=== PATIENT | female | born 1980 | race Caucasian/White ===

== ENCOUNTER 2023-03-16 19:44 | Outpatient (REF) | payer BC, SELFPAY ==
[2023-03-22 08:11] LABS: Age Gdln ACOG Testing Note (.); HPV Aptima Negative (Negative); IGP, Aptima HPV, rfx 16/18,45 Note (.)
== END 2023-03-16 19:45 | disposition home or self-care (01) ==
LOC: LAB 19:44
PROVIDERS: PCP Internal Medicine; Visit Provider Physician Assistant
DX: Z12.4 Encounter for screening for malignant neoplasm of cervix (principal)
CPT/HCPCS: 87624; G0145

== ENCOUNTER 2023-03-17 06:54 | Outpatient (OUT) | payer BC, SELFPAY ==
[2023-03-17 07:11] LABS: Basophils Absolute Auto 0.1 10^3/uL (0.0-0.1); Basophils Percent Auto 0.6 % (0.2-2.0); Eosinophils Absolute Auto 0.4 10^3/uL (0.0-0.7); Eosinophils Percent Auto 3.9 % (0.9-7.0); Hematocrit 41.8 % (36.0-48.0); Hemoglobin 14.3 g/dL (12.0-16.0); Immature Granulocytes Abs Auto 0.05 10^3/uL (0.00-0.03); Immature Granulocytes Pct Auto 0.6 % (0.0-0.5); Lymphocytes Absolute Auto 2.3 10^3/uL (1.2-3.8); Lymphocytes Percent Auto 25.7 % (20.5-60.0); Mean Corpuscular HGB Conc 34.2 g/dL (29.9-35.2); Mean Corpuscular Hemoglobin 31.8 pg (26.7-34.0); Mean Corpuscular Volume 93.1 fL (81.0-99.0); Mean Platelet Volume 10.3 fL (9.5-13.5); Monocytes Absolute Auto 0.5 10^3/uL (0.3-0.8); Monocytes Percent Auto 5.9 % (1.7-12.0); Neutrophils Absolute Auto 5.6 10^3/uL (1.4-6.5); Neutrophils Percent Auto 63.3 % (43.0-75.0); Platelet Count 244 10^3/uL (150-450); Red Blood Count 4.49 10^6/uL (4.20-5.40); Red Cell Distribution Width 12.3 % (11.0-15.0); White Blood Count 8.9 10^3/uL (4.0-11.0)
[2023-03-17 07:46] LABS: Estimated Average Glucose 97 mg/dL
[2023-03-17 08:26] LABS: Alanine Aminotransferase 46 U/L (14-59); Albumin Globulin Ratio 1.1; Alkaline Phosphatase 55 U/L (46-116); Anion Gap 14.5; Aspartate Amino Transferase 18 U/L (15-37); BUN Creatinine Ratio 23.5; Bilirubin Total 0.9 mg/dL (0.2-1.0); Calcium 8.7 mg/dL (8.5-10.1); Carbon Dioxide 25.5 mmol/L (21.0-32.0); Chloride 104 mmol/L (98-107); Chol HDL Ratio 7.6; Cholesterol 265 mg/dL (<=200); Estimated GFR (African America >60 (>=60); Estimated GFR (Non-African Ame >60 (>=60); Globulin 3.5 g/dL; Glucose 109 mg/dL (74-106); HDL Cholesterol 35 mg/dL (40-60); Sodium 140 mmol/L (136-145); Total Protein 7.5 g/dL (6.4-8.2); Triglycerides 163 mg/dL (<=150); VLDL CHOLESTEROL 32.6 mg/dL
--- NOTE | 2023-03-17 11:43 | MM_ITS ---
Patient: RAJAN TOLENTINO Exam Date: 03/17/2023 : 1980 Gender:F Ordering : DR Gutierrez Mcintosh . Admission #: [id number] Family : DR Jony Lundberg D.O. Order #: [id number] CLICK HERE TO VIEW EXAM RADIOLOGY REPORT PROCEDURE: MM TOMOSYNTHESIS SCREENING BI COMPARISON: MG MAMM SCREEN 3D AGUSTIN CAD, 03/05/2022. MG MAMM SCREEN AGUSTIN W CAD, 02/06/2020. MG MAMM AGUSTIN DIAG FU, 04/11/2019. MG MAMM AGUSTIN DIAG W CAD DIG, 05/23/2014. INDICATIONS: Screening Calculator Name NCI Breast Cancer Risk Assessment Tool 5 Year Breast Cancer Risk 2.00% Lifetime Breast Cancer Risk 14.90% Personal Breast Cancer No Personal Ovarian Cancer No Treatments None Family Cancers Grandmother-paternal with renal cell cancer at age ~73; Aunt-paternal with renal cell cancer at age ~55. LOCATION: [facility] BREAST COMPOSITION: Heterogeneously dense,which may obscure small masses. FINDINGS: DIAGNOSTIC CATEGORY 2--BENIGN FINDING: RIGHT BREAST: No significant suspicious finding. Scattered benign-appearing calcifications are present. No significant change has occurred. LEFT BREAST: No significant suspicious finding. Scattered benign-appearing calcifications are present. No significant change has occurred. RECOMMENDATIONS: ROUTINE MAMMOGRAM AND CLINICAL EVALUATION IN 12 MONTHS. PLEASE NOTE: A NORMAL MAMMOGRAM DOES NOT EXCLUDE THE POSSIBILITY OF BREAST CANCER. A CLINICALLY SUSPICIOUS PALPABLE LUMP SHOULD BE BIOPSIED. Dictated by: Edson Guidry M.D. on 03/18/2023 at 10:21 Approved by: Edson Guidry M.D. on 03/18/2023 at 10:25
== END 2023-03-17 06:55 | disposition home or self-care (01) ==
LOC: LAB 06:54
PROVIDERS: PCP Internal Medicine; Visit Provider Obstetrics & Gynecology
DX: Z00.00 Encounter for general adult medical examination without abnormal findings (principal); Z12.31 Encounter for screening mammogram for malignant neoplasm of breast; Z80.51 Family history of malignant neoplasm of kidney
CPT/HCPCS: 36415; 77063; 77067; 80053; 80061; 83036; 84443; 85025

== ENCOUNTER 2024-03-01 14:43 | Outpatient (OUT) | payer BC, SELFPAY ==
--- NOTE | 2024-03-01 | XR_ITS ---
The [address] [address] Patient Name: RAJAN TOLENTINO MRN: [id number] date: 1980 Sex: F Assigned Patient Location: Current Patient Location: Accession/Order Number: [id number] Exam Date: 03/01/2024 14:45 Report Date: 03/03/2024 08:53 At the request of: MARY SANDS Procedure: XR foot LT min 3V PROCEDURE: XR foot LT min 3V HISTORY: LEFT FOOT PAIN ; chronic lump anterior midfoot COMPARISON: None. FINDINGS: BONES:Mild narrowing of the first metatarsophalangeal joint along with tiny periarticular osteophytes. No fracture, dislocation, bone lesion. Prominent degenerative enthesophyte at the Achilles tendon insertion into the calcaneus. SOFT TISSUES:No visible soft tissue swelling. EFFUSION:None visible. OTHER: Negative. XR/XR foot LT min 3V IMPRESSION: 1. No acute bone abnormality or appreciable findings to account for patient's symptoms. 2. Mild degenerative changes. Electronically authenticated by: MIGUE ARORA Date: 03/03/2024 08:53
== END 2024-03-01 14:44 | disposition home or self-care (01) ==
LOC: EC 14:43
PROVIDERS: PCP Internal Medicine; Visit Provider Physician Assistant
DX: M67.472 Ganglion, left ankle and foot (principal)
CPT/HCPCS: 73630

== ENCOUNTER 2024-03-12 07:16 | Outpatient (OUT) | payer BC, SELFPAY ==
[2024-03-12 07:33] LABS: Basophils Absolute Auto 0.1 10^3/uL (0.0-0.1); Basophils Percent Auto 0.7 % (0.2-2.0); Eosinophils Absolute Auto 0.3 10^3/uL (0.0-0.7); Eosinophils Percent Auto 4.4 % (0.9-7.0); Hematocrit 36.9 % (36.0-48.0); Hemoglobin 12.9 g/dL (12.0-16.0); Immature Granulocytes Abs Auto 0.02 10^3/uL (0.00-0.03); Immature Granulocytes Pct Auto 0.3 % (0.0-0.5); Lymphocytes Absolute Auto 2.5 10^3/uL (1.2-3.8); Lymphocytes Percent Auto 35.9 % (20.5-60.0); Mean Corpuscular Hemoglobin 32.2 pg (26.7-34.0); Mean Platelet Volume 9.9 fL (9.5-13.5); Monocytes Absolute Auto 0.4 10^3/uL (0.3-0.8); Monocytes Percent Auto 5.2 % (1.7-12.0); Neutrophils Absolute Auto 3.7 10^3/uL (1.4-6.5); Neutrophils Percent Auto 53.5 % (43.0-75.0); Platelet Count 238 10^3/uL (150-450); Red Blood Count 4.01 10^6/uL (4.20-5.40); Red Cell Distribution Width 12.2 % (11.0-15.0)
[2024-03-12 08:32] LABS: Alanine Aminotransferase 26 U/L (14-59); Albumin Globulin Ratio 1.1; Albumin Level 3.7 g/dL (3.4-5.0); Alkaline Phosphatase 65 U/L (46-116); Anion Gap 11.1; Aspartate Amino Transferase <5 U/L (15-37); BUN Creatinine Ratio 12.5; Bilirubin Total 0.5 mg/dL (0.2-1.0); Calcium 8.4 mg/dL (8.5-10.1); Carbon Dioxide 26.8 mmol/L (21.0-32.0); Chloride 104 mmol/L (98-107); Chol HDL Ratio 7.1; Cholesterol 191 mg/dL (<=200); Estimated GFR (African America >60 (>=60); Estimated GFR (Non-African Ame >60 (>=60); Globulin 3.4 g/dL; Glucose 103 mg/dL (74-106); HDL Cholesterol 27 mg/dL (40-60); Potassium 3.9 mmol/L (3.5-5.1); Sodium 138 mmol/L (136-145); Thyroid Stimulating Hormone 1.269 uIU/mL (0.358-3.740); Total Protein 7.1 g/dL (6.4-8.2); Triglycerides 390 mg/dL (<=150)
[2024-03-12 08:44] LABS: Estimated Average Glucose 97 mg/dL
== END 2024-03-12 07:17 | disposition home or self-care (01) ==
LOC: LAB 07:18
PROVIDERS: PCP Internal Medicine; Visit Provider Obstetrics & Gynecology
DX: Z00.00 Encounter for general adult medical examination without abnormal findings (principal)
CPT/HCPCS: 36415; 80053; 80061; 83036; 84443; 85025

== ENCOUNTER 2024-03-21 12:51 | Outpatient (OUT) | payer BC, SELFPAY | END 2024-03-21 12:52 | disposition home or self-care (01) | LOC: PST 12:51 | PROVIDERS: PCP Internal Medicine; Visit Provider Podiatrist Foot & Ankle Surgery | DX: Z01.818 Encounter for other preprocedural examination (principal); M67.472 Ganglion, left ankle and foot ==

== ENCOUNTER 2024-03-21 12:51 | Outpatient (OUT) | payer BC, SELFPAY | END 2024-03-21 12:52 | disposition home or self-care (01) | LOC: PST 12:51 | PROVIDERS: PCP Internal Medicine; Visit Provider Surgery | DX: Z01.818 Encounter for other preprocedural examination (principal); Z12.11 Encounter for screening for malignant neoplasm of colon ==

== ENCOUNTER 2024-03-22 12:18 | Day surgery (SDC) | payer BC, SELFPAY ==
[2024-03-22] MEDS: CEFAZOLIN SODIUM 2 GM/50 ML D5W PREMIX IV (12:27)
--- NOTE | 2024-03-22 12:35 | P.ORON_ITS ---
Brief Operative Note Date of procedure: 03/22/24 Pre-op diagnosis general: Soft tissue mass left foot Post-op diagnosis: same as pre-op Procedure: Procedure performed: Excision subcutaneous soft tissue mass left foot Indications for procedure: Patient is a 43-year-old female who has had a lump on the top of her left foot for 5 years. She has had persistent periodic pain which is worse with shoes for some time and is only gotten worse in the last year. He presented to my office and was evaluated by Mercedes Hunter PA-c. Her findings at that appointment as well as in preoperative holding were consistent with a benign skin lesion (lipoma vs ganglion) on the dorsal central left foot. I discussed potential risks and benefits of surgical intervention specifically including infection, wound healing problems and recurrence as well as numbness, tingling, bleeding and pain. Patient provided consent to undergo the above procedure Intraoperative findings: Freely movable subcutaneous mass which measured 0.4 x 0.4 cm which was firm and raised 0.2 cm from the adjacent skin Procedure in detail: Patient was identified in preoperative holding by myself which time correct side and site were marked and consent was obtained. Preoperative antibiotics were started and patient is brought back in the operating theater placed on table in supine position. The operative extremity was prepped and draped in usual sterile fashion. Local anesthesia consisting of 5 cc of 1% lidocaine plain and 5 cc of 1% lidocaine with epi were used to anesthetize the surgical site. Formal timeout was performed. The skin overlying the mass was incised longitudinally and a combination of sharp and blunt dissection gained access to the a firm soft tissue mass which appeared to extend into the dermal structures and subcutaneous tissue. Due to apparent involvement of the deep dermal structures decision was made to excise the lesion and a 3-1 ellipse. The adjacent skin was slightly raised medially and laterally to allow for closure without tension. The surgical site was irr igated with copious saline and skin was then closed in layers. 10 cc of 0.5% Marcaine plain were used for postoperative analgesia. A dry sterile dressing and surgical shoe were then applied. Postoperative plan: Discharge home under family's care Weightbearing as tolerated in surgical shoe Patient should remain off work for at least 10 days Prescriptions were sent to her pharmacy through my office EMR Patient may remove the surgical dressing in 2 to 3 days wash area with soap and water and pat dry then replace with a gauze dressing. No soaking or submerging and no ointments or solutions are to be applied. Patient should follow-up in approximately 3 weeks for suture removal but may call sooner if needed Anesthesia: local Surgeon: Musa Shabazz Estimated blood loss (mL): 10 Tourniquet time (min): 0 Pathology: other (ganglion cyst) Condition: stable Disposition: PACU
[2024-03-22] MEDS: LIDOCAINE HCL 1%-EPINEPHRINE 1:100,000 20 ML MDV INJ (13:16)
[2024-03-22] MEDS: LIDOCAINE HCL 1% 100 MG/10 ML MDV INJ (13:16)
[2024-03-22] MEDS: BUPIVACAINE HCL 0.5% PF 50 MG/10 ML VIAL INJ (13:24)
== END 2024-03-22 13:50 | disposition home or self-care (01) ==
PROVIDERS: PCP Internal Medicine; Visit Provider Podiatrist Foot & Ankle Surgery
PROC: (CPT 28043; principal; 2024-03-22 13:00)
DX: D23.72 Other benign neoplasm of skin of left lower limb, including hip (principal)
CPT/HCPCS: 28043; 88305; J0665; J0690

== ENCOUNTER 2024-03-28 06:53 | Day surgery (SDC) | payer BC, SELFPAY ==
--- NOTE | 2024-03-28 | OP_ITS ---
OPERATION DATE: 03/28/2024 PREOPERATIVE DIAGNOSIS: Colorectal screening. POSTOPERATIVE DIAGNOSIS: Normal colonoscopy to cecum. PROCEDURE: Colonoscopy to cecum. SURGEON: Jatinder Gonzalez M.D. ANESTHESIA: Monitored anesthesia care. ESTIMATED BLOOD LOSS: Zero. INDICATIONS AND CONSENT: Patient is a 43-year-old female presents for colorectal screening. Indications, risks, benefits, alternatives of proceeding with colonoscopy were explained extensively to the patient, including the risks of bleeding, colon perforation or anesthetic complications. All of her questions were answered. Informed consent was obtained. PROCEDURE: Patient brought to the operating room, placed in the left lateral decubitus position. Monitored anesthesia care was provided. Rectal exam was performed which revealed no masses or blood. The scope was inserted into the anal canal. Under direct visualization was advanced. It was advanced to the cecum where cecal markings were clearly identified. There was noted to be a good prep. Upon withdrawal of the scope, mucosal surfaces were carefully examined. There were no mass lesions or polyps. No inflammatory changes or ulcerations. No significant diverticulosis. The scope was retroflexed in the anal canal. There was no significant hemorrhoidal disease. Scope was then withdrawn. Patient tolerated procedure well, was sent to recovery room in good condition. f/u screening colonoscopy should be in 10 years. CC: Dr. Stefano TONY
[2024-03-28 07:05] VITALS: BP 132/80; PULSE 96; TEMP 36.4; O2SAT 99; BMI 10.8; BMI 33.8
[2024-03-28] MEDS: 0.9 % SODIUM CHLORIDE 500 ML 50 ML IV (07:22)
[2024-03-28 07:29] LABS: HCG Qualitative NEGATIVE (NEGATIVE); Internal Control Within Normal Limits
[2024-03-28 08:17] VITALS: BP 94/56; PULSE 84; TEMP 36.4; O2SAT 95
[2024-03-28 08:32] VITALS: BP 113/73; PULSE 86; O2SAT 97
[2024-03-28 08:47] VITALS: BP 107/70; PULSE 70; O2SAT 98
== END 2024-03-28 09:00 | disposition home or self-care (01) ==
PROVIDERS: Anesthesiology; PCP Internal Medicine; Visit Provider Surgery
PROC: (CPT 812; principal; 2024-03-28 08:05)
DX: Z12.11 Encounter for screening for malignant neoplasm of colon (principal); Z90.49 Acquired absence of other specified parts of digestive tract; M54.16 Radiculopathy, lumbar region
CPT/HCPCS: 00812; 45378; 36415; 84703; J2704

== ENCOUNTER 2024-04-04 19:01 | Outpatient (REF) | payer BC, SELFPAY ==
[2024-04-11 12:09] LABS: Age Gdln ACOG Testing Note (.); HPV Aptima Negative (Negative); IGP, Aptima HPV, rfx 16/18,45 Note (.)
== END 2024-04-04 19:02 | disposition home or self-care (01) ==
LOC: LAB 19:01
PROVIDERS: PCP Internal Medicine; Visit Provider Obstetrics & Gynecology
DX: Z01.419 Encounter for gynecological examination (general) (routine) without abnormal findings (principal)
CPT/HCPCS: 87624; 88175

== ENCOUNTER 2024-04-17 13:47 | Outpatient (OUT) | payer BC, SELFPAY ==
--- NOTE | 2024-04-17 13:53 | MM_ITS ---
Patient Name: RAJAN TOLENTINO MR#: [id number] : 1980 Exam Date: 04/17/2024 Ordering Doctor: DR Gutierrez Mcintosh . RADIOLOGY REPORT PROCEDURE: MM TOMOSYNTHESIS SCREENING BI COMPARISON: MM TOMOSYNTHESIS SCREENING BI, 03/17/2023. MG MAMM SCREEN 3D AGUSTIN CAD, 03/05/2022. MG MAMM SCREEN AGUSTIN W CAD, 02/06/2020. MG MAMM AGUSTIN DIAG W CAD DIG, 05/23/2014. INDICATIONS: Screening for malignant neoplasm of breast Calculator Name [facility] Breast Cancer Risk Assessment Tool 5 Year Breast Cancer Risk 2.10% Lifetime Breast Cancer Risk 14.60% Personal Breast Cancer No Personal Ovarian Cancer No Treatments None Family Cancers Grandmother-paternal with renal cell cancer at age ~73; Aunt-paternal with renal cell cancer at age ~55. LOCATION: [facility] BREAST COMPOSITION: The breasts are extremely dense, which lowers the sensitivity of mammography. FINDINGS: DIAGNOSTIC CATEGORY 1--NEGATIVE. RIGHT BREAST: No significant suspicious finding. No significant change has occurred. LEFT BREAST: No significant suspicious finding. No significant change has occurred. RECOMMENDATIONS: ROUTINE MAMMOGRAM AND CLINICAL EVALUATION IN 12 MONTHS. PLEASE NOTE: A NORMAL MAMMOGRAM DOES NOT EXCLUDE THE POSSIBILITY OF BREAST CANCER. A CLINICALLY SUSPICIOUS PALPABLE LUMP SHOULD BE BIOPSIED. Dictated by: Edson Guidry M.D. on 04/17/2024 at 15:52 Approved by: Edson Guidry M.D. on 04/17/2024 at 15:55
== END 2024-04-17 13:48 | disposition home or self-care (01) ==
LOC: RAD 13:50
PROVIDERS: PCP Internal Medicine; Visit Provider Obstetrics & Gynecology
DX: Z12.31 Encounter for screening mammogram for malignant neoplasm of breast (principal); Z80.51 Family history of malignant neoplasm of kidney
CPT/HCPCS: 77063; 77067

== ENCOUNTER 2024-08-17 00:35 | Emergency (ER) | payer BC, SELFPAY ==
[2024-08-17] VITALS (19 sets, daily range): BP systolic 98–131; BP diastolic 50–81; PULSE 79–102; TEMP 36.7–37; O2SAT 92–100; BMI 32.1
[2024-08-17] MEDS: ONDANSETRON PF 4 MG/2 ML VIAL IV ×2 (01:10→03:16)
[2024-08-17] MEDS: FAMOTIDINE/PF 20 MG/2 ML VIAL IV (01:10)
[2024-08-17] MEDS: 0.9 % SODIUM CHLORIDE 1,000 ML 1000 ML IV ×2 (01:10→02:21)
[2024-08-17] MEDS: KETOROLAC TROMETHAMINE 30 MG/ML VIAL IVP (01:10)
[2024-08-17 01:13] LABS: Hematocrit 40.6 % (36.0-48.0); Hemoglobin 14.3 g/dL (12.0-16.0); Mean Corpuscular HGB Conc 35.2 g/dL (29.9-35.2); Mean Corpuscular Hemoglobin 32.4 pg (26.7-34.0); Mean Corpuscular Volume 91.9 fL (81.0-99.0); Platelet Count 237 10^3/uL (150-450); Red Blood Count 4.42 10^6/uL (4.20-5.40); Red Cell Distribution Width 13.2 % (11.0-15.0); White Blood Count 12.4 10^3/uL (4.0-11.0)
[2024-08-17 01:26] LABS: Alanine Aminotransferase 32 U/L (14-59); Albumin Globulin Ratio 1.2; Albumin Level 4.1 g/dL (3.4-5.0); Alkaline Phosphatase 62 U/L (46-116); Anion Gap 13.2; Aspartate Amino Transferase 18 U/L (15-37); BUN Creatinine Ratio 14.8; Bilirubin Total 1.8 mg/dL (0.2-1.0); Calcium 8.8 mg/dL (8.5-10.1); Carbon Dioxide 26.6 mmol/L (21.0-32.0); Chloride 101 mmol/L (98-107); Estimated GFR (African America >60 (>=60 mL/min/1.73m^2); Estimated GFR (Non-African Ame >60 (>=60 mL/min/1.73m^2); Globulin 3.5 g/dL; Glucose 153 mg/dL (74-106); Potassium 3.8 mmol/L (3.5-5.1); Sodium 137 mmol/L (136-145); Total Protein 7.6 g/dL (6.4-8.2)
--- NOTE | 2024-08-17 01:30 | ED_ITS ---
HPI HPI - General Adult General Chief complaint: Abdominal Pain Stated complaint: ABDOMINAL PAIN N/V/D Time Seen by Provider: 08/17/24 00:45 Source: patient Mode of arrival: walk-in Limitations: no limitations History of Present Illness HPI narrative: This 44-year-old female presents for evaluation of nausea vomiting and diarrhea that started earlier today. She has had multiple episodes of vomiting and diarrhea since getting home from work earlier today. She has abdominal cramps. She has not eaten since lunch. Related Data Home Medications ?Medication ?Instructions ?Recorded ?Confirmed citalopram 20 mg tablet 20 mg PO QPM 03/21/24 03/28/24 Allergies Allergy/AdvReac Type Severity Reaction Status Date / Time No Known Drug Allergies Allergy Verified 08/17/24 00:45 Opioid HPI Opioid Management Most Recent Opioid Data: Last Pain Scale 5 08/17/24 02:06 08/17/24 Last MAR Pain Assessment 08/17/24 02:06 Review of Systems ROS Status of ROS 10 or more systems reviewed and unremark able except as noted in history and below PFSH [facility] Medical History (Updated 08/17/24 @ 03:26 by Lara Jaimes MD) Hypertriglyceridemia ?E78.1 - Pure hyperglyceridemia (ICD-10) Ganglion cyst ?M67.40 - Ganglion, unspecified site (ICD-10) Back pain ?M54.9 - Dorsalgia, unspecified (ICD-10) Anxiety ?F41.9 - Anxiety disorder, unspecified (ICD-10) Peptic ulcer ?K27.9 - Peptic ulcer, site unspecified, unspecified as acute or chronic, without hemorrhage or perforation (ICD-10) Surgical History (Updated 03/21/24 @ 13:08 by Mary Ruano NP) History of cholecystectomy ?Z90.49 - Acquired absence of other specified parts of digestive tract (ICD- 10) H/O lumbar discectomy ?Z98.890 - Other specified postprocedural states (ICD-10) H/O lumbar discectomy ?Z98.890 - Other specified postprocedural states (ICD-10) H/O lumbar discectomy ?Z98.890 - Other specified postprocedural states (ICD-10) S/P lumbar fusion ?Z98.1 - Arthrodesis status (ICD-10) H/O section ?Z98.891 - History of uterine scar from previous surgery (ICD-10) H/O section ?Z98.891 - History of uterine scar from previous surgery (ICD-10) H/O section ?Z98.891 - History of uterine scar from previous surgery (ICD-10) History of esophagogastroduodenoscopy (EGD) ?Z98.890 - Other specified postprocedural states (ICD-10) Family History (Updated 03/21/24 @ 13:08 by Mary Ruano NP) Other Cancer Family history of diabetes mellitus Family history of hypertension Glaucoma Social History (Updated 03/21/24 @ 12:52 by Mary Ruano NP) Within the past year, how often did you have a drink containing alcohol: m onthly or less Smoking status: Never smoker Non-prescribed substance use: denies use 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 Highest level of school completed/degree received: Master's degree Little interest or pleasure in doing things: not at all Feeling down, depressed, or hopeless: not at all Exam Narrative Exam Narrative: Vital signs and Nursing Notes reviewed: Patient is afebrile, tachycardic with a pulse of 102, blood pressure is normal, she is mildly hypoxic with pulse ox of 92% on room air General: Awake, alert, oriented, pale, uncomfortable appearing adult female, no respiratory distress HEENT: Normocephalic atraumatic, mucous membranes are pink and dry Chest: Lungs are clear to auscultation with good air entry, there is no wheezing rhonchi or rales appreciated no accessory muscle use, patient is speaking in complete sentences-no chest wall tenderness to palpation CVS: Regular rate and rhythm S1-S2, no murmurs rubs or gallops, pulses are brisk and equal bilaterally ABD: Soft, nondistended, epigastric abdominal tenderness Extremities: Moving all extremities, no lower extremity tenderness or swelling noted Skin: Pale, dry Neuro: No focal deficits Constitutional Vital Signs, click to edit/add: Last Vital Signs Temp 98.0 F 08/17/24 00:45 Pulse 102 H 08/17/24 00:45 Resp 18 08/17/24 00:45 BP 110/73 08/17/24 03:00 Pulse Ox 96 08/17/24 03:00 O2 Del Method Room Air 08/17/24 00:45 Course Vital Signs Vital signs: Vital Signs Pulse Oximetry 100 08/17/24 00:42 Temperature 98.0 F 08/17/24 00:45 Pulse Rate 102 H 08/17/24 00:45 Respiratory Rate 18 08/17/24 00:45 Blood Pressure 110/73 08/17/24 03:00 Pulse Oximetry 96 08/17/24 03:00 Oxygen Delivery Method Room Air 08/17/24 00:45 Medical Decision Making [facility] Narrative Medical decision making narrative: This 44-year-old female presents for evaluation of acute onset of nausea vomiting and diarrhea after work today. She had multiple episodes of nausea vomiting and diarrhea. She presents with epigastric abdominal pain associated with the above complaints. She is mildly tachycardic upon arrival and pulse ox was 92. I think she was probably not taking deep breaths at that time because her pulse ox on reevaluation is in the high 90s. She has epigastric abdominal tenderness. An IV was placed and she was treated with IV fluids, Zofran, Pepcid and Toradol. On reevaluation her nausea is somewhat improved but she is still having epigastric abdominal pain and cramping. She will be given Bentyl and a dose of IV morphine. She has a normal white count and hemoglobin. Electrolytes are normal with an elevated total bilirubin likely related to her forceful vomiting. On reevaluation she is feeling better but feels that she cannot lie on her side because she may still vomit. She was given an additional liter of normal saline for a total of 2 and repeat dose of Zofran. She was tolerating ice chips afterwards and feeling somewhat better. She will be given a home dose of Zofran and prescription for Zofran, Pepcid and Bentyl to use as needed Lab Data Lab results reviewed: Yes I reviewed the patient's lab results Labs: Lab Results 08/17/24 Range/Units 01:00 WBC 12.4 H (4.0-11.0) 10^3/uL RBC 4.42 (4.20-5.40) 10^6/uL Hgb 14.3 (12.0-16.0) g/dL Hct 40.6 (36.0-48.0) % MCV 91.9 (81.0-99.0) fL MCH 32.4 (26.7-34.0) pg MCHC 35.2 (29.9-35.2) g/dL RDW 13.2 (11.0-15.0) % Plt Count 237 (150-450) 10^3/uL MPV 10.0 (9.5-13.5) fL Seg Neuts % (Manual) 91.0 H (43.0-75.0) Band Neutrophils % 2.0 (0-5) % Lymphocytes % (Manual) 1.0 L (20.5-60.0) % Monocytes % (Manual) 5.0 (1.7-12.0) % Eosinophils % (Manual) 1.0 (0.9-7.0) % Basophils % (Manual) 0.0 L (0.2-2.0) % Neutrophils # (Manual) 11.28 H (1.4-6.5) 10^3/uL Band Neutrophils # 0.2 (0.0-0.3) 10^3/uL Lymphocytes # (Manual) 0.12 L (1.20-3.80) 10^3/uL Monocytes # (Manual) 0.62 (0.30-0.80) 10^3/uL Eosinophils # (Manual) 0.12 (0.00-0.70) 10^3/uL Basophils # (Manual) 0.00 (0.00-0.10) 10^3/uL Sodium 137 (136-145) mmol/L Potassium 3.8 (3.5-5.1) mmol/L Chloride 101 (98-107) mmol/L Carbon Dioxide 26.6 (21.0-32.0) mmol/L Anion Gap 13.2 BUN 13.0 (7.0-18.0) mg/dL Creatinine 0.88 (0.55-1.02) mg/dL Est GFR ( Amer) >60 (>=60 mL/min/1.73m^2) Est GFR (Non-Af Amer) >60 (>=60 mL/min/1.73m^2) BUN/Creatinine Ratio 14.8 Glucose 153 H (74-106) mg/dL Calcium 8.8 (8.5-10.1) mg/dL Total Bilirubin 1.8 H (0.2-1.0) mg/dL AST 18 (15-37) U/L ALT 32 (14-59) U/L Alkaline Phosphatase 62 (46-116) U/L Total Protein 7.6 (6.4-8.2) g/dL Albumin 4.1 (3.4-5.0) g/dL Globulin 3.5 g/dL Albumin/Globulin Ratio 1.2 Discharge Plan Discharge Chief Complaint: Abdominal Pain Clinical Impression: Gastroenteritis Patient Disposition: Home, Self-Care Time of Disposition Decision: 03:26 Condition: Good Prescriptions / Home Meds: No Action citalopram 20 mg tablet 20 mg PO QPM Print Language: Swedish Instructions: Gastroenteritis (ED) Referrals: Jony Lundberg DO [Primary Care Provider] - 1 week
[2024-08-17 01:55] LABS: Band Neutrophils Absolute 0.2 10^3/uL (0.0-0.3); Eosinophils Absolute Manual 0.12 10^3/uL (0.00-0.70); Lymphocytes Absolute Manual 0.12 10^3/uL (1.20-3.80); Monocytes Absolute Manual 0.62 10^3/uL (0.30-0.80); Segmented Neut Absolute Manual 11.28 10^3/uL (1.4-6.5)
[2024-08-17] MEDS: DICYCLOMINE HCL 20 MG/2 ML VIAL IM (02:06)
[2024-08-17] MEDS: MORPHINE SULFATE 4 MG/ML VIAL IV (02:06)
[2024-08-17] MEDS: ONDANSETRON 4 MG RAPDIS TABLET SL ×2 (03:53)
--- NOTE | 2024-08-17 03:56 | PC.NURSE ---
i gave this patient verbal and written discharge orders along with 3 Rx and medication to go home with. at time of discharge this patient voices no concerns and shows no signs of distress
== END 2024-08-17 03:57 | disposition home or self-care (01) ==
PROVIDERS: Emergency Provider Emergency Medicine; PCP Internal Medicine
DX: K52.9 Noninfective gastroenteritis and colitis, unspecified (principal); Z90.49 Acquired absence of other specified parts of digestive tract; Z98.1 Arthrodesis status
CPT/HCPCS: 36415; 80053; 85007; 85027; 96361; 96372; 96374; 96375; 96376; 99284; J0500; J1885; J2270; J2405; J3490; Q0162

== ENCOUNTER 2025-04-10 20:12 | Outpatient (REF) | payer BC, SELFPAY ==
--- OUTSIDE RECORDS SUMMARY | 2024-03-22 04:30 | XMS_ITS ---
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 [address] [place] [address] 03/22/2024 Musa Shabazz Plan Of Treatment No Information Progress Notes * Natacha STANFORDDOB: [birth year] (44 yo F)Acc No.[id number]:03/22/2024 UNLOCKED PROGRESS NOTE Patient:?Natacha STANFORD :?Musa Shabazz DPM, MSDOB:1980???Age: 43 Y???Sex:FemaleDate:4Phone:[phone]:[address] [place], [id number]:Marcial Nino Out:08:45 AM EST * * Electronic signature of Musa Shabazz DPM on 04/10/2025 at 12:51 PM EDTSign off status: PendingVisit Status:?CHK (Check Out) * Provider: Jose Shabazz DPM, MS Date: 1 Generated for Printing/Faxing/eTransmitting on:?04/10/2025 12:51 PM EDT
--- OUTSIDE RECORDS SUMMARY | 2025-04-10 15:20 | XMS_ITS | Encounter Summary ---
Author Organization [facility] Address [address] [place] [address] Care Team Providers Care Client Solutions Manager Name Role Phone Jony Lundberg DO Primary Care Provider [phone] Reason for Visit * ReasonCommentsGynecologic Exam Encounter Details DateTypeDepartmentCare Team (Latest Contact Info)Gprtjpofpne42/22/2025 3:20 PM EDTProcedure Visit [facility] [place] [facility] [address] [place] [address] Gutierrez Mcintosh DO [address] [place], [place] [id number] Well woman exam with routine gynecological exam; Encounter for screening mammogram for malignant neoplasm of breast; Insulin resistance Social History Tobacco UseTypesPacks/DayYears UsedDateSmoking Tobacco: Never Assessed CommentsNoSex and Gender InformationValueDate RecordedSex Assigned at BirthNot on fileLegal CpnUqbrum30/15/2023 6:53 PM EDTGender IdentityNot on fileSexual OrientationNot on filedocumented as of this encounter Last Filed Vital Signs Vital SignReadingTime TakenCommentsBlood Sysslriu223/7404/10/2025 12:59 PM EDT Pulse--Temperature--Respiratory Rate--Oxygen Saturation--Inhaled Oxygen Concentration--Kxukgo10.5 kg (204 lb)04/10/2025 12:59 PM EDTHeight--Body Mass Index--documented in this encounter Progress Notes * Maria Isabel Marcus LPN - 04/10/2025 3:20 PM EDT Reason for Appointment: Patient ID: Natacha Stanford is a 44 y.o. female who presents for Gynecologic Exam Patient presents today for Annual Exam. MEDICATIONS Current Outpatient Medications Medication Instructions azithromycin (Zithromax Z-Humberto) 250 MG tablet As directed citalopram (CELEXA) 20 mg, Oral, Daily citalopram (CELEXA) 20 mg, Oral, Every morning fluticasone (Flonase Allergy Relief) 50 MCG/ACT nasal spray 1 spray, Each Nostril, Daily, Shake gently. Before first use, prime pump. After use, clean tip and replace cap. ibuprofen 800 mg, Oral, Every 8 hours PRN niacin (antihyperlipidemic) (NIACOR) 500 mg, Oral, Nightly phentermine (ADIPEX-P) 37.5 mg, Oral, Daily before breakfast phentermine (ADIPEX-P) 37.5 mg, Oral, Daily before breakfast rosuvastatin (CRESTOR) 5 mg, Oral, Daily ALLERGIES Allergies Allergen Reactions Niacin Hives PROBLEMS Active Ambulatory Problems Diagnosis Date Noted Mood change 09/06/2024 Resolved Ambulatory Problems Diagnosis Date Noted No Resolved Ambulatory Problems No Additional Past Medical History HISTORY PAST MEDICAL HISTORY SOCIAL HISTORY No past medical history on file. Social History Tobacco Use Smoking status: Not on file Smokeless tobacco: Not on file Substance Use Topics Alcohol use: Not on file Drug use: Not on file FAMILY HISTORY Family History Problem Relation Name Age of Onset Hypertension Mother Glaucoma Mother Tuberculosis Mother Hyperlipidemia Father Depression Father SURGICAL HISTORY Past Surgical History: Procedure Laterality Date SECTION, LOW TRANSVERSE x3 CHOLECYSTECTOMY 2010 SPINE SURGERY 2005 Discectomy REVIEW OF SYSTEMS Review of Systems: Review of Systems Constitutional: Negative. HENT: Negative. Eyes: Negative. Respiratory: Negative. Cardiovascular: Negative. Gastrointestinal: Negative. Genitourinary: Negative. Musculoskeletal: Negative. Skin: Negative. Neurological: Negative. All other systems reviewed and are negative. Hematological: Negative. Endocrine: Negative. Allergic/Immunologic: Negative. OBJECTIVE Objective: Physical Exam Constitutional: Appearance: Normal appearance. She is well-developed. Genitourinary: Vulva normal. Cardiovascular: Rate and Rhythm: Normal rate and regular rhythm. Pulmonary: Effort: Pulmonary effort is normal. Breath sounds: Normal breath sounds. Abdominal: General: Bowel sounds are normal. There is no distension. Palpations: Abdomen is soft. Tenderness: There is no abdominal tenderness. There is no guarding or rebound. Musculoskeletal: General: No swelling. Normal range of motion. Right lower leg: No edema. Left lower leg: No edema. Neurological: Mental Status: She is alert and oriented to person, place, and time. Skin: General: Skin is warm and dry. Psychiatric: Mood and Affect: Mood normal. Behavior: Behavior normal. Vitals and nursing note reviewed. Exam conducted with a public records researcher present. Vitals: There is no height or weight on file to calculate BMI. BP: 114/74 No LMP recorded. ASSESSMENT & PLAN ICD-10-CM 1. Well woman exam with routine gynecological exam Z01.419 THIN PREP TIS PAP AND HR HPV DNA 2. Encounter for screening mammogram for malignant neoplasm of breast Z12.31 Bilateral screening mammogram Bilateral screening mammogram Orders Placed This Encounter Procedures Bilateral screening mammogram Annual Wellness Exam: Patient presents today for routine annual exam. Patient states she has no current complaints. Patients vitals were reviewed and within normal limits. Growth and development is noted to be appropriate for age. Menstrual history is noted to be regular with no concerns reported. No mental health concerns was expressed. Pap Smear: Speculum was inserted into the vagina and pap was obtained without difficulty. HPV testing was performed per age guideline. Patient was advised that pap results could take anywhere from 7 to 10 days to receive and our office will reach out to the patient with those once we have them. Patient can also view results via [facility]. I reinforced importance of condom use for STI prevention. Patient declined cultures to be performed with today's visit. Breast Exam: Upon examination, clinical breast exam was noted to be normal and screening mammogram was ordered and given to patient to have obtained. Patient was counseled on breast self-awareness, including the importance of knowing what is normal for her own breasts and promptly reporting any changes such as new lumps, skin dimpling, nipple discharge, or pain. Screening mammogram was recommended annually. Discussed signs and symptoms of breast cancer and when to seek medical attention. Answered all patient questions. Skin cancer screening exam performed. No new lesions or moles identified on exam today. Pt denies use of tanning beds. Pt encouraged to use protective sun block while in the sun. All questions and concerns answered. Contraceptive Counseling (if applicable): Patient is currently using IUD as a form of contraceptive. Patient will continue with IUD Follow Up: Patient is to return to our office in one year for annual exam unless needed otherwise. Documented by Maria Isabel Marcus LPN on behalf of: Gutierrez Mcintosh DO documented in this encounter Plan of Treatment NameTypePriorityAssociated DiagnosesOrder ScheduleBilateral screening mammogram ImagingRoutine Encounter for screening mammogram for malignant neoplasm of breast Expected: 04/10/2025 (Approximate), Expires: 06/10/2026THIN PREP TIS PAP AND HR HPV DNAPathology and CytologyRoutine Well woman exam with routine gynecological exam Ordered: 04/10/2025documented as of this encounter Visit Diagnoses Diagnosis Well woman exam with routine gynecological exam Routine gynecological examination Encounter for screening mammogram for malignant neoplasm of breast Insulin resistance Other abnormal glucose documented in this encounter Care Teams Team MemberRelationshipSpecialtyStart DateEnd Date Jony Lundberg DO [address] [place] [address] PCP - GeneralInternal Medicine03/16/23documented as of this encounter
--- OUTSIDE RECORDS SUMMARY | 2025-04-10 20:16 | XMS_ITS | Patient Health Record ---
Author Organization [facility] [place] Address [address] [place] [address] Care Team Providers Care Watch Inspector Name Role Phone Jony Lundberg DO Primary Care Provider Unavaila ble Allergies No Known Allergies Reason For Referral No Information Medications Medication SIG (Take, Route, Frequency, Duration) Notes Start Date End Date Status CeleXA 20 MG 1 tablet Orally Once a day ActiveCephalexin 500 MG1 capsule Orally TID; Duration: 7 days4Active Social History Tobacco Use: Social History Observation Description Date Details (start date - stop date) Never Smoker NA - NA Tobacco Control (Standard) Question Answer Notes Tobacco use: Nonsmoker Plan Of Treatment Pending Test Test Name Order Date XR Foot LT (3 views) * 03/01/2024 XR foot LT min 3V 03/03/2024 Insurance Providers Payer Name Payer Address Payer Phone Subscriber Number Group Number Insured Name Patient Relationship to Insured Coverage Start Date Coverage End Date BCBS OUT OF STATE [address] [place] [address] [id number] Natacha Stanford Self - patient is the insured Medical (General) History Medical History History ICD Code back arthritis Surgical History Surgery Date(Month/Year) discectomy x3 lumbar fusionc-section x3lap cholecystectomyHospitalization History Reason Date(Month/Year) see above
--- OUTSIDE RECORDS SUMMARY | 2025-04-10 20:16 | XMS_ITS | Clinical Summary ---
Author Organization [facility] Address [address] [place] [address] Care Team Providers Care Furniture Assembler Name Role Phone Unavailable Primary Care Provider Unavailabl e Social History Tobacco UseTypesPacks/DayYears UsedDateSmoking Tobacco: Never Assessed CommentsUnknownSex and Gender InformationValueDate RecordedSex Assigned at Not on fileLegal TczFjyhyx36/30/2022 12:32 AM EDTGender IdentityNot on file Sexual OrientationNot on file Plan of Treatment Not on file
--- OUTSIDE RECORDS SUMMARY | 2025-04-10 20:16 | XMS_ITS | Clinical Summary ---
Author Organization [facility] Address [address] [place] [address] Care Team Providers Care Material Damage Appraiser Name Role Phone Jony Lundberg DO Primary Care Provider [phone] Allergies Active AllergyReactionsCriticalityNoted DacuWfcxkxsqXzqkybKedgc12/16/2024 Medications MedicationSigDispense QuantityRefillsLast FilledStart DateEnd DateStatus citalopram (CeleXA) 20 MG tablet Indications:Mood changeTake 1 tablet (20 mg) by mouth in the morning. 30 tablet 1103Active citalopram (CeleXA) 20 MG tablet Indications:Mood changeTAKE 1 TABLET BY MOUTH EVERY DAY IN THE MORNING 90 tablet 3084Active rosuvastatin (Crestor) 5 MG tablet Indications:Hyperlipidemia, unspecified hyperlipidemia typeTake 1 tablet (5 mg) by mouth Daily 30 tablet 1114Active niacin, antihyperlipidemic, (Niacor) 500 MG tablet Indications:Other hyperlipidemiaTake 1 tablet (500 mg) by mouth at bedtime 30 tablet ctive ibuprofen 800 MG tablet Indications:Mild painTake 1 tablet (800 mg) by mouth every 8 (eight) hours if needed for mild pain for up to 20 doses 20 tablet 05/23/2024ctive phentermine (Adipex-P) 37.5 MG tablet Indications:Weight gain,Encounter for weight managementTake 1 tablet (37.5 mg) by mouth in the morning. Take before meals. 30 tablet 5Active phentermine (Adipex-P) 37.5 MG tablet Indications:Encounter for weight managementTake 1 tablet (37.5 mg) by mouth in the morning. Take before meals. 30 tablet 5Active azithromycin (Zithromax Z-Humberto) 250 MG tablet Indications:Other subacute sinusitisAs directed 6 tablet 5Active fluticasone (Flonase Allergy Relief) 50 MCG/ACT nasal spray Indications:Other subacute sinusitisAdminister 1 spray into each nostril Daily Shake gently. Before first use, prime pump. After use, clean tip and replace cap. 16 g 5009/12/2025ctive metFORMIN XR (Glucophage-XR) 500 MG 24 hr tablet Indications:Insulin resistanceTake 2 tablets (1,000 mg) by mouth in the evening. Take with meals Do not crush, chew, or split. 60 tablet 111ctive azithromycin (Zithromax Z-Humberto) 250 MG tablet Indications:Upper respiratory infection, acuteAs directed 6 tablet Discontinued(Therapy completed) Active Problems ProblemNoted DateDiagnosed DateMood xfbsfv1909/06/2024 Encounters DateTypeDepartmentCare VbkyFophxswfbcp22/22/2025 3:20 PM EDTProcedure Visit [facility] [address] [place] [address] Gutierrez Mcintosh, Well woman exam with routine gynecological exam; Encounter for screening mammogram for malignant neoplasm of breast; Insulin hvzekvnpaw26/22/2025amboo flowsheet [facility] [address] [place] [address] Gutierrez Mcintosh DO 04/07/2025Refill [facility] [address] [facility] [place] [address] Gutierrez Mcintosh DO Hyperlipidemia, unspecified hyperlipidemia type02/22/2025Telephone [facility] [address] [place] [address] Jennifer Caba LPN from Last 3 Months Family History Medical HistoryRelationNameCommentsDepressionFatherHyperlipidemiaFatherGlaucoma MotherHypertensionMotherTuberculosisMotherRelationNameStatusCommentsFatherMother Social History Tobacco UseTypesPacks/DayYears UsedDateSmoking Tobacco: Never Assessed CommentsNoSex and Gender InformationValueDate RecordedSex Assigned at BirthNot on fileLegal GejLqlajr62/15/2023 6:53 PM EDTGender IdentityNot on fileSexual OrientationNot on file Last Filed Vital Signs Vital SignReadingTime TakenCommentsBlood Zdtrxeob106/7404/10/2025 12:59 PM EDT Pulse--Temperature--Respiratory Rate--Oxygen Saturation--Inhaled Oxygen Concentration--Zfhtyt73.5 kg (204 lb)04/10/2025 12:59 PM EDTHeight--Body Mass Index-- Plan of Treatment Not on file Insurance MemberSubscriberPlan / Payer (Effective 2022-Present)Name:Natacha Stanford Member ID:[id number] Relation to Subscriber:SelfName:Natacha Stanford Subscriber ID:[id number] Payer ID:Not on file Type:Not on file Address: [facility] [address] [place] [address] Care Teams Team MemberRelationshipSpecialtyStart DateEnd Date Jony Lundberg DO [address] [place] [address] PCP - GeneralInternal Medicine03/16/23
--- OUTSIDE RECORDS SUMMARY | 2025-04-10 20:16 | XMS_ITS | Encounter Summary ---
Author Organization [facility] Address [address] [facility] [place] [address] Care Team Providers Care Associate Director Data & Analytics Name Role Phone Jony Lundberg DO Primary Care Provider [phone] Reason for Visit * ReasonCommentsMed Refill Encounter Details DateTypeDepartmentCare Team (Latest Contact Info)Xmnagiigtyu13/19/2025Refill [facility] [address] [place] [address] Gutierrez Mcintosh DO [address] [place] [address] Hyperlipidemia, unspecified hyperlipidemia type Social History Tobacco UseTypesPacks/DayYears UsedDateSmoking Tobacco: Never Assessed CommentsUnknownSex and Gender InformationValueDate RecordedSex Assigned at Not on fileLegal XyoJadlyh18/15/2023 6:53 PM EDTGender IdentityNot on fileSexual OrientationNot on filedocumented as of this encounter Plan of Treatment Not on file documented as of this encounter Visit Diagnoses Diagnosis Hyperlipidemia, unspecified hyperlipidemia type documented in this encounter Care Teams Team MemberRelationshipSpecialtyStart DateEnd Date Jony Lundberg DO [address] [place] [address] PCP - GeneralInternal Medicine03/16/23documented as of this encounter
--- OUTSIDE RECORDS SUMMARY | 2025-04-10 20:16 | XMS_ITS | Clinical Summary ---
Author Organization [facility] Address [address] [place] [address] Phone Care Team Providers Care Whiskey Filterer Name Role Phone Unavailable Primary Care Provider Unavailabl e Social History Tobacco UseTypesPacks/DayYears UsedDateSmoking Tobacco: Never Assessed CommentsUnknownSex and Gender InformationValueDate RecordedSex Assigned at Not on fileLegal AoyJdrkxw96/25/2022 5:02 PM ESTGender IdentityNot on fileSexual OrientationNot on file Plan of Treatment Not on file
--- OUTSIDE RECORDS SUMMARY | 2025-04-10 20:16 | XMS_ITS | Encounter Summary ---
Author Organization [facility] Address [address] [facility] [place] [address] Care Team Providers Care Warehouse Checker Name Role Phone Jony Lundberg DO Primary Care Provider [phone] Encounter Details DateTypeDepartmentCare Team (Latest Contact Info)Cnarzcpnnqs94/22/2025Bamboo flowsheet [facility] [address] [place] [address] Gutierrez Mcintosh DO [address] [place] [address] Social History Tobacco UseTypesPacks/DayYears UsedDateSmoking Tobacco: Never Assessed CommentsNoSex and Gender InformationValueDate RecordedSex Assigned at BirthNot on fileLegal AktScrjcc10/15/2023 6:53 PM EDTGender IdentityNot on fileSexual OrientationNot on filedocumented as of this encounter Plan of Treatment Not on file documented as of this encounter Visit Diagnoses Not on filedocumented in this encounter Care Teams Team MemberRelationshipSpecialtyStart DateEnd Date Jony Lundberg DO [address] [place] [address] PCP - GeneralInternal Medicine03/16/23documented as of this encounter
[2025-04-15 15:08] LABS: Age Gdln ACOG Testing Note (.); IGP, Aptima HPV, rfx 16/18,45 Note (.)
== END 2025-04-10 20:13 | disposition home or self-care (01) ==
LOC: LAB 20:12
PROVIDERS: PCP Internal Medicine; Visit Provider Obstetrics & Gynecology
DX: Z01.419 Encounter for gynecological examination (general) (routine) without abnormal findings (principal)
CPT/HCPCS: 87624; 88175

== ENCOUNTER 2025-05-02 10:43 | Outpatient (OUT) | payer BC, SELFPAY ==
--- OUTSIDE RECORDS SUMMARY | 2024-03-22 03:30 | XMS_ITS ---
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 Name Role Phone Jony Lundberg DO Primary Care Provider Unavaila Musa Hopper Unavailable [phone] REASON FOR VISIT LT foot ganglion removal Encounters Encounter Location Date Provider Diagnosis THE [facility] [address] [place] [address] 03/22/2024 Musa Shabazz Plan Of Treatment No Information Progress Notes * Natacha STANFORDDOB: [birth year] (44 yo F)Acc No.[id number]:03/22/2024 UNLOCKED PROGRESS NOTE Patient:?Natacha STANFORD :?Musa Shabazz DPM, MSDOB:1980???Age: 43 Y???Sex:FemaleDate:4Phone:[phone]:[address] [place], [place]Bqp:Marcial Nino Out:08:45 AM EST * * Electronic signature of Musa Shabazz DPM on 05/02/2025 at 10:45 AM ESTSign off status: PendingVisit Status:?CHK (Check Out) * Provider: Jose Shabazz DPM, MS Date: 1 Generated for Printing/Faxing/eTransmitting on:?05/02/2025 10:45 AM EST
--- OUTSIDE RECORDS SUMMARY | 2025-05-02 10:45 | XMS_ITS | Encounter Summary ---
Author Organization [facility] Address [address] [facility] [facility] [place] [address] Care Team Providers Care Finishing Room Supervisor Name Role Phone Jony Lundberg DO Primary Care Provider [phone] Reason for Visit * ReasonOnset DateCommentsMed Asseeg4404/24/2025 Encounter Details DateTypeDepartmentCare Team (Latest Contact Info)Fbsxrqrlwnk63/05/2025Refill [facility] [address] [place] [address] Gutierrez Mcintosh DO [address] [place] [place], [facility] Mood change Social History Tobacco UseTypesPacks/DayYears UsedDateSmoking Tobacco: Never Assessed CommentsNoSex and Gender InformationValueDate RecordedSex Assigned at BirthNot on fileLegal DksGbgevb88/15/2023 6:53 PM EDTGender IdentityNot on fileSexual OrientationNot on filedocumented as of this encounter Plan of Treatment Not on file documented as of this encounter Visit Diagnoses Diagnosis Mood change Unspecified episodic mood disorder documented in this encounter Care Teams Team MemberRelationshipSpecialtyStart DateEnd Date Jony Lundberg DO [address] [place] [phone] PCP - GeneralInternal Medicine03/16/23documented as of this encounter
--- OUTSIDE RECORDS SUMMARY | 2025-05-02 10:45 | XMS_ITS | Encounter Summary ---
Author Organization [facility] Address [address] [facility] [place] [address] Care Team Providers Care Immigration Associate Name Role Phone Jony Lundberg DO Primary Care Provider [phone] Encounter Details DateTypeDepartmentCare Team (Latest Contact Info)Akrkwsfzsqh71/05/2025Orders Only [facility] [address] [place] [address] Neris Parker LPN [address] [employer] [facility] [place] [address] Social History Tobacco UseTypesPacks/DayYears UsedDateSmoking Tobacco: Never Assessed CommentsNoSex and Gender InformationValueDate RecordedSex Assigned at BirthNot on fileLegal KvhAyvlal37/15/2023 6:53 PM EDTGender IdentityNot on fileSexual OrientationNot on filedocumented as of this encounter Plan of Treatment Not on file documented as of this encounter Procedures Procedure NamePriorityDate/TimeAssociated DiagnosisCommentsPAP TEST, EXTERNAL Axrzjdl7504/10/2025 12:00 AM EDTdocumented in this encounter Results * PAP TEST, EXTERNAL (04/10/2025 12:00 AM EDT) Narrative Authorizing ProviderResult TypeResult StatusFazio Nurse [facility] CYTOLOGY ORDERABLESFinal ResultPerforming OrganizationAddressCity/State/ZIP CodePhone Number EXTERNAL LAB documented in this encounter Visit Diagnoses Not on filedocumented in this encounter Care Teams Team MemberRelationshipSpecialtyStart DateEnd Date Jony Lundberg DO [address] [place] [address] PCP - GeneralInternal Medicine03/16/23documented as of this encounter
--- NOTE | 2025-05-02 10:46 | MM_ITS ---
Patient Name: RAJAN TOLENTINO MR#: [id number] : 1980 Exam Date: 05/02/2025 Ordering Doctor: DR KILLIAN KUMAR . RADIOLOGY REPORT PROCEDURE: MM TOMOSYNTHESIS SCREENING BI COMPARISON: MM TOMOSYNTHESIS SCREENING BI, 04/17/2024. MM TOMOSYNTHESIS SCREENING BI, 03/17/2023. MG MAMM SCREEN 3D AGUSTIN CAD, 03/05/2022. MG MAMM AGUSTIN DIAG W CAD DIG, 05/23/2014. INDICATIONS: screening Calculator Name NCI Breast Cancer Risk Assessment Tool 5 Year Breast Cancer Risk 2.00% Lifetime Breast Cancer Risk 14.30% Personal Breast Cancer No Personal Ovarian Cancer No Treatments None Family Cancers Grandmother-paternal with renal cell cancer at age ~73; Aunt-paternal with renal cell cancer at age ~55. LOCATION: [facility] BREAST COMPOSITION: The breasts are extremely dense, which lowers the sensitivity of mammography. FINDINGS: RIGHT BREAST: A developing 1 cm asymmetry of the posterosuperior portion of the right breast. 14 cm from the nipple and 12 o'clock position LEFT BREAST: No significant suspicious finding. DIAGNOSTIC CATEGORY 0--INCOMPLETE: NEED ADDITIONAL IMAGING EVALUATION. RECOMMENDATIONS: ADDITIONAL MAMMOGRAPHIC VIEWS REQUIRED: RIGHT BREAST - spot compression imaging with targeted right breast ultrasoundc ULTRASOUND: RIGHT BREAST Dictated by: Arjun Gray DO on 05/02/2025 at 14:22 Approved by: Arjun Gray DO on 05/02/2025 at 14:32
--- OUTSIDE RECORDS SUMMARY | 2025-05-02 10:46 | XMS_ITS | Clinical Summary ---
Author Organization [facility] Address [address] [place] [address] Care Team Providers Care Coat Examiner Name Role Phone Unavailable Primary Care Provider Unavailabl e Social History Tobacco UseTypesPacks/DayYears UsedDateSmoking Tobacco: Never Assessed CommentsUnknownSex and Gender InformationValueDate RecordedSex Assigned at Not on fileLegal GhrRmmvdw03/30/2022 12:32 AM EDTGender IdentityNot on file Sexual OrientationNot on file Plan of Treatment Not on file
--- OUTSIDE RECORDS SUMMARY | 2025-05-02 10:46 | XMS_ITS | Patient Health Record ---
Author Organization [facility] [place] Address [address] [place] [address] Care Team Providers Care Undercar Specialist Name Role Phone Jony Lundberg DO Primary [...] Date BCBS OUT OF STATE [address] [place] [address] [id number] Natacha Stanford Self - patient is the insured Medical (General) History Medical History History ICD Code back arthritis Surgical History Surgery Date(Month/Year) discectomy x3 lumbar fusionc-section x3lap cholecystectomyHospitalization History Reason Date(Month/Year) see above
--- OUTSIDE RECORDS SUMMARY | 2025-05-02 10:46 | XMS_ITS | Clinical Summary ---
Author Organization [facility] Address [address] [place] [address] Care Team Providers Care Clinical Medical Assistant Name Role Phone Jony Lundberg DO Primary Care Provider [phone] Allergies Active AllergyReactionsCriticalityNoted AyctTopglyioFefzskInktm02/16/2024 Medications MedicationSigDispense QuantityRefillsLast FilledStart DateEnd DateStatus niacin, antihyperlipidemic, (Niacor) 500 MG tablet Indications:Other hyperlipidemiaTake 1 tablet (500 mg) by mouth at bedtime 30 tablet 4Active ibuprofen 800 MG tablet Indications:Mild painTake 1 [...] clean tip and replace cap. 16 g 503/6Active rosuvastatin (Crestor) 5 MG tablet Indications:Hyperlipidemia, unspecified hyperlipidemia typeTAKE 1 TABLET BY MOUTH EVERY DAY 90 tablet 5Active metFORMIN XR (Glucophage-XR) 500 MG 24 hr tablet Indications:Insulin resistanceTake 2 tablets (1,000 mg) by mouth in the evening. Take with meals Do not crush, chew, or split. 60 tablet 111/6Active citalopram (CeleXA) 20 MG tablet Indications:Mood changeTake 1 tablet (20 mg) by mouth in the morning. 90 tablet 311//6Active citalopram (CeleXA) 20 MG tablet Indications:Mood changeTake 1 tablet (20 mg) by mouth in the morning. 30 tablet 11012/23/20220620/10/2024Discontinued citalopram (CeleXA) 20 MG tablet Indications:Mood changeTAKE 1 TABLET BY MOUTH EVERY DAY IN THE MORNING 90 tablet 308/20230620/10/2024Discontinued rosuvastatin (Crestor) 5 MG tablet Indications:Hyperlipidemia, unspecified hyperlipidemia typeTake 1 tablet (5 mg) by mouth Daily 30 tablet /Discontinued azithromycin (Zithromax Z-Humberto) 250 MG tablet Indications:Upper respiratory infection, acuteAs directed 6 tablet Discontinued(Therapy completed) Active Problems ProblemNoted DateDiagnosed DateMood zmvlci2809/06/2024 Encounters DateTypeDepartmentCare HbmlTihreivtmpv03/05/2025[place] [address] Gutierrez Mcintosh, DO Mood afpuqd0704/24/2025[place] [address] Neris Parker LPN 04/10/2025 3:20 [place] [address] Gutierrez Mcintosh, DO Well woman exam with routine gynecological exam; Encounter for screening mammogram for malignant neoplasm of breast; Insulin mqbwaiujmw83/22/2025linisync Result Encounter [facility] Unsolicited Gutierrez Mcintosh, DO 04/10/2025amboo flowsheet [facility] [address] [place] [address] Gutierrez Mcintosh, DO 04/07/2025Refill [facility] [address] [place] [address] DaynaGutierrez, DO Hyperlipidemia, unspecified hyperlipidemia type02/22/2025Telephone [facility] [address] [place] [address] Jennifer Caba LPN from Last 3 Months Family History Medical HistoryRelationNameCommentsDepressionFatherHyperlipidemiaFatherGlaucoma MotherHypertensionMotherTuberculosisMotherRelationNameStatusCommentsFatherMother Social History Tobacco UseTypesPacks/DayYears UsedDateSmoking Tobacco: Never Assessed CommentsNoSex and Gender InformationValueDate RecordedSex Assigned at BirthNot on fileLegal WhxLgsyxy81/15/2023 6:53 PM EDTGender IdentityNot on fileSexual OrientationNot on file Last Filed Vital Signs Vital SignReadingTime TakenCommentsBlood Hsibskyg921/7404/10/2025 12:59 PM EDT Pulse--Temperature--Respiratory Rate--Oxygen Saturation--Inhaled Oxygen Concentration--Tyialm13.5 kg (204 lb)04/10/2025 12:59 PM EDTHeight--Body Mass Index-- Plan of Treatment Not on file Procedures Procedure NamePriorityDate/TimeAssociated DiagnosisCommentsIGP,APTIMA HPV,AGE IYBECpkhoev66/22/2025 12:56 PM EDT PAP TEST, YXZZUDWZHfiiauq91/22/2025 12:00 AM EDTfrom Last 3 Months Results * IGP,APTIMA HPV,AGE GDLN (04/10/2025 12:56 PM EDT)ComponentValueRef RangeTest MethodAnalysis TimePerformed AtPathologist SignatureAGE GDLN ACOG TESTINGNote. TBHComment: ?? TESTS ? RESULT ??FLAG ??UNITS ?REF RANGE ??LAB ?? Clinician Provided Cytology Information ?? Source.............Cervix;Endocervix ?? No. of containers..01 ThinPrep Vial Age Algo ACOG Alecia... ??30-65 ? 01 ?FLAG LEGEND: ?L-Low Normal,H-High Normal,LL-Alert Low,HH-Alert High <-Panic Low,>-Panic High,A-Abnormal,AA-Critical Abnormal Performed at: 01 =G ?[facility] ?? [address] [place], [place] ??[id number] ?? Miesha Bishop MD, IGP, APTIMA HPV, RFX 16/18,45Note.TBHComment: ?? TESTS ? RESULT ??FLAG ??UNITS ?REF RANGE ??LAB DIAGNOSIS: ?02 ?? NEGATIVE FOR INTRAEPITHELIAL LESION OR MALIGNANCY. Specimen adequacy: ?02 ?? Satisfactory for evaluation. ??Endocervical and/or squamous metaplastic ?? cells (endocervical component) are present. Performed by: ? 02 ?? Nadia Hunter, Hand Rug Braider (ASCP) . ? 02 Note: ? Note ?02 ?? The Pap smear is a screening test designed to aid in the ?? detection of premalignant and malignant conditions of the ?? uterine cervix. ??It is not a diagnostic procedure and ?? should not be used as the sole means of detecting cervical ?? cancer. ??Both false-positive and false-negative reports do ?? occur. Test Methodology: ? Note ?02 ?? This liquid based ThinPrep(R) pap test was interpreted ?? using the Jumpido(R) Genius(TM) Cervical Algorithm whole ?? slide imaging system. HPV Genotype Reflex ?? Note ?02 ?? Criteria not met, HPV Genotype not performed. ?FLAG LEGEND: ?L-Low Normal,H-High Normal,LL-Alert Low,HH-Alert High <-Panic Low,>-Panic High,A-Abnormal,AA-Critical Abnormal Performed at: 02 WB ?[facility] [place] ?? [address], [place] ??[address] ?? Miesha Bishop MD, HPV APTIMANegativeNegativeTBHComment: This nucleic acid amplification test detects fourteen high- risk HPV types (16,18,31,33,35,39,45,51,52,56,58,59,66,68) without differentiation. Performed at: ??=G - [facility] ??[id number] Pie Crust Mixer: Miesha Bishop MD, Phone: ??[phone] Performed at: ?? - [facility] ??[id number] Pie Crust Mixer: Miesha Bishop MD, Phone: ??[phone] Specimen (Source)Anatomical Location / LateralityCollection Method / Volume Collection TimeReceived Time04/10/2025 12:56 PM EDT1 12:56 PM EDT Narrative [facility] - 04/15/2025 3:08 PM EDT BRUSH-SPATULA CERVIX ENDOCERVIX Authorizing ProviderResult TypeResult StatusCorey Dayna DOLAB BLOOD ORDERABLES Final ResultPerforming OrganizationAddressCity/State/ZIP CodePhone Number [facility] * PAP TEST, EXTERNAL (04/10/2025 12:00 AM EDT) Narrative Authorizing ProviderResult TypeResult StatusFazio Nurse [facility] CYTOLOGY ORDERABLESFinal ResultPerforming OrganizationAddressCity/State/ZIP CodePhone Number EXTERNAL LAB from Last 3 Months Insurance Care Teams Team MemberRelationshipSpecialtyStart DateEnd Date Jony Lundberg DO [address] [place] [id number] PCP - GeneralInternal Medicine03/16/23
--- OUTSIDE RECORDS SUMMARY | 2025-05-02 10:46 | XMS_ITS | Clinical Summary ---
Author Organization [facility] Address [address] [place] [address] Phone Care Team Providers Care Bindery Machine Feeder Offbearer Name Role Phone Unavailable Primary Care Provider Unavailabl e Social History Tobacco UseTypesPacks/DayYears UsedDateSmoking Tobacco: Never Assessed CommentsUnknownSex and Gender InformationValueDate RecordedSex Assigned at Not on fileLegal SeiUihibv10/25/2022 5:02 PM ESTGender IdentityNot on fileSexual OrientationNot on file Plan of Treatment Not on file
== END 2025-05-02 10:44 | disposition home or self-care (01) ==
LOC: MAMMO 10:43
PROVIDERS: PCP Internal Medicine; Visit Provider Obstetrics & Gynecology
DX: Z12.31 Encounter for screening mammogram for malignant neoplasm of breast (principal); Z80.51 Family history of malignant neoplasm of kidney; R92.8 Other abnormal and inconclusive findings on diagnostic imaging of breast
CPT/HCPCS: 77063; 77067

== ENCOUNTER 2025-05-07 10:14 | Outpatient (OUT) | payer BC, SELFPAY ==
--- NOTE | 2025-05-07 10:21 | MM_ITS ---
Patient Name: RAJAN TOLENTINO MR#: [id number] : 1980 Exam Date: 05/07/2025 Ordering Doctor: DR KILLIAN KUMAR . RADIOLOGY REPORT PROCEDURE: MM DIAGNOSTIC MAMMO UNILAT RT COMPARISON: MM TOMOSYNTHESIS SCREENING BI, 05/02/2025. MM TOMOSYNTHESIS SCREENING BI, 04/17/2024. MM TOMOSYNTHESIS SCREENING BI, 03/17/2023. MG MAMM SCREEN 3D AGUSTIN CAD, 03/05/2022. INDICATIONS: right breast area of asymmetry Calculator Name NCI Breast Cancer Risk Assessment Tool 5 Year Breast Cancer Risk 2.00% Lifetime Breast Cancer Risk 14.30% Personal Breast Cancer No Personal Ovarian Cancer No Treatments None Family Cancers Grandmother-paternal with renal cell cancer at age ~73; Aunt-paternal with renal cell cancer at age ~55. LOCATION: [facility] BREAST COMPOSITION: There are scattered areas of fibroglandular density. FINDINGS: DIAGNOSTIC CATEGORY 1--NEGATIVE. RIGHT BREAST: No significant suspicious finding. The previously identified asymmetry compresses out on the spot compression view suggestive of overlapping stroma. RECOMMENDATIONS: ROUTINE MAMMOGRAM AND CLINICAL EVALUATION IN 12 MONTHS. Dictated by: Steven Bacon DO on 05/07/2025 at 10:47 Approved by: Steven Bacon DO on 05/07/2025 at 10:51
== END 2025-05-07 10:15 | disposition home or self-care (01) ==
LOC: RAD 10:15
PROVIDERS: PCP Internal Medicine; Visit Provider Obstetrics & Gynecology
DX: R92.8 Other abnormal and inconclusive findings on diagnostic imaging of breast (principal); N64.89 Other specified disorders of breast; Z80.51 Family history of malignant neoplasm of kidney
CPT/HCPCS: 77065